=== PATIENT | female | born 1990 ===

== ENCOUNTER 2022-01-19 07:53 | Outpatient (REF) | payer MEDICARE, MEDICAID, SELFPAY ==
--- NOTE | ~2022-01-19 | XR_ITS ---
EXAMINATION: BILATERAL ANKLE X-RAY CLINICAL INFORMATION: Pain COMPARISON: None TECHNIQUE: 3 views of each ankle FINDINGS: Bone alignment is normal. No fracture or dislocation is seen. The ankle mortises are normal. The soft tissues are normal. XR/XR ankle LT min 3V IMPRESSION: Unremarkable exam.
--- NOTE | ~2022-01-19 | XR_ITS ---
EXAMINATION: BILATERAL ANKLE X-RAY CLINICAL INFORMATION: Pain COMPARISON: None TECHNIQUE: 3 views of each ankle FINDINGS: Bone alignment is normal. No fracture or dislocation is seen. The ankle mortises are normal. The soft tissues are normal. XR/XR ankle RT min 3V IMPRESSION: Unremarkable exam.
== END 2022-01-19 07:54 | disposition home or self-care (01) ==
LOC: HO.HOSX 07:53
PROVIDERS: Visit Provider Physician Assistant
DX: M25.571 Pain in right ankle and joints of right foot (principal); M25.572 Pain in left ankle and joints of left foot
CPT/HCPCS: 73610; 99202

== ENCOUNTER 2023-05-04 11:00 | Outpatient (REF) | payer MEDICARE, MEDICAID, SELFPAY ==
--- NOTE | ~2023-05-04 | XR_ITS ---
EXAMINATION: XR ANKLE, RIGHT CLINICAL INFORMATION: Pain COMPARISON: Ankle radiographs 01/11/1992 TECHNIQUE: AP, lateral, and mortise views of the right ankle. FINDINGS: No acute fracture or dislocation. 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 Punctate nonspecific calcification in the soft tissues posterior to the ankle. No joint effusion. XR/XR ankle RT min 3V IMPRESSION: 1. 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
== END 2023-05-04 11:01 | disposition home or self-care (01) ==
LOC: HO.HOSX 11:00
PROVIDERS: Visit Provider Physician Assistant
DX: M25.371 Other instability, right ankle (principal); M25.571 Pain in right ankle and joints of right foot
CPT/HCPCS: 73610; 99212

== ENCOUNTER 2023-05-04 13:10 | Outpatient (AMB) | payer MEDICARE, MEDICAID, SELFPAY ==
--- NOTE | 2023-05-04 13:18 | A.OFFVIS_ITS ---
Intake Intake Visit Reasons: Ov- Right ankle pain/ popping Intake Note: This is a 33 year old female who presents today for a follow up on her right ankle pain, DOI 04/12/21. She states still feeling sore and achiness. Hx of PT with mild relief, and the lace up ankle brace didn't help. Allergies No Known Allergies Allergy (Verified 05/04/23 13:31) HPI Ov- Right ankle pain/ popping HPI Details Melissa is a 33 year old woman who returns with complaints of right ankle pain, S/P fall, DOI: 04/12/21, with a new fall & re-injury on 01/14/22. She was last seen for bilateral ankle pain on 01/19/22. She was fitted for bilateral lace-up ankle braces and PT was ordered. She complains today of ongoing soreness & a persistent achiness in her right ankle. She also complains of a constant clicking or popping in her ankle with motion. She says this is mildly painful. She localizes her pain mostly to the lateral aspect of her ankle. She denies any pain with ankle motion. She found mild relief from PT in the past, and her ankle brace was not helpful. 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 [employer] Social History Current occupational status: unemployed Current occupation: right handed Review of Systems Const All systems reviewed & are unremarkable except as noted in HPI and below Physical Exam Const General: no acute distress, alert and awake Orientation/consciousness: patient oriented x3 HEENT Head: Yes normocephalic and Yes atraumatic Eyes EOM: EOMs intact bilaterally Resp Effort & Inspection: normal respiratory effort and able to speak in complete sentences Cardio Jugular venous distension: no JVD Skin General skin exam: turgor normal Rashes: no rashes Neuro General: patient oriented x3 Extrem Other: Right ankle: Normal to inspection. No ecchymosis, erythema, or edema. Full ROM in all planes, no TTP over the medial or lateral malleolus, over the ATFL, or deltoid. Negative anterior drawer. NVI. Psych Appearance: grossly normal Affect: normal affect Attitude: cooperative Results Reviewed Results Reviewed: X-rays of the right ankle which were obtained while in the office today and were reviewed by , Mary Simpson PA-C, were negative for any acute fractures or dislocations. Assessment & Plan Assessment & Plan (1) Instability of right ankle joint: Code(s): M25.371 - Other instability, right ankle (2) Right ankle pain: Code(s): M25.571 - Pain in right ankle and joints of right foot Plan Melissa is a 33 year old woman who returns with complaints of right ankle pain, S/P fall, DOI: 04/12/21, with a new fall & re-injury on 01/14/22. She was last seen for bilateral ankle pain on 01/19/22. She was fitted for bilateral lace-up ankle braces and PT was ordered. She complains today of ongoing soreness & a persistent achiness in her right ankle. She also complains of a constant clicking or popping in her ankle with motion. She says this is mildly painful, but she can feel this. She localizes her pain mostly to the lateral aspect of her ankle. She denies any pain with ankle motion. She found mild relief from PT in the past, and her ankle brace was not helpful. 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 The patient has tried and failed p.t. and bracing therefore, she will be sent for a right ankle MRI, as she would like to have this done at [facility]. She will follow up when completed for review. I explained that she will need to bring a copy of the imaging on disc, as well as a copy of the Radiologist report for this appointment, and she expressed understanding. Follow-up will be after MRI is obtained, sooner if needed. Orders: Orders XR ankle RT min 3V Today M25.579 - Pain in unspecified ankle and joints of unspecified foot MR ankle RT wo con Today M25.371 - Other instability, right ankle Patient Instructions: Scribed for Mary Simpson PA-C by David Collins, medical record retrieval specialist, on 05/04/23 at 1:35 PM EST. Coding Level of Care Code Est Pt Level 4 (72131) Diagnoses Instability of right ankle joint M25.371 Right ankle pain M25.571
== END 2023-05-04 13:57 | disposition home or self-care (01) ==
PROVIDERS: Visit Provider Physician Assistant
DX: M25.371 Other instability, right ankle (principal); M25.571 Pain in right ankle and joints of right foot
CPT/HCPCS: 99214

== ENCOUNTER 2023-06-18 12:49 | Outpatient (AMB) | payer MEDICARE, MEDICAID, SELFPAY ==
--- NOTE | 2023-06-18 12:52 | A.OFFVIS_ITS ---
Intake Vital Signs 06/18/23 12:54 Height 5 ft Weight 138 lb BMI 26.9 Intake Visit Reasons: OV - right ankle MRI review Intake Note: Melissa is a 33 year old female who presents today for a MRI review of her right ankle that was done at [place] on 05/07/23. Allergies No Known Allergies Allergy (Verified 06/18/23 12:56) HPI OV - right ankle MRI review HPI Details 33-year-old female who presents in the [facility] today for a follow up of right ankle pain. I last saw the patient in the office on 05/04/2023 where I ordered an MRI. [facility] Surgical History (Updated 06/18/23 @ 12:55 by KAYCEE Beauchamp) Hx of cholecystectomy Social History Current occupational status: unemployed Current occupation: right handed Review of Systems Const All systems reviewed & are unremarkable except as noted in HPI and below Physical Exam Vital Signs: BMI result Body Mass Index 26.9 Const General: cooperative, healthy appearing and no acute distress Resp Effort & Inspection: normal respiratory effort and able to speak in complete sentences Cardio Rate: regular rate Peripheral pulses: Peripheral pulses 2+ throughout GI Palpation (GI): Soft to palpation Skin Lesions: no lesions Rashes: no rashes Extrem Other: Right ankle: Normal to inspection. No ecchymosis, erythema, or edema. Patient is able to demonstrate dorsiflexion, plantar flexion, pronation and supination. Negative anterior drawer. Sensation intact. Pedal Pulse intact. Assessment & Plan Assessment & Plan (1) Instability of right ankle joint: Code(s): M25.371 - Other instability, right ankle (2) Right ankle pain: Code(s): M25.571 - Pain in right ankle and joints of right foot Plan Ms. Christianson is a 33-year-old female who presents in the office today for a follow up of right ankle pain. I last saw the patient in the office on 05/04/2023 where I ordered an MRI. A new referral was sent for the patient to work on ROM and strengthening of the right ankle. Follow up will be in 6-8 weeks by phone. If her symptoms continue we will discuss a referral to [facility] [place] foot and ankle specialist. Follow up will be in 6-8 weeks, or sooner if needed. MRI of the right ankle, obtained on 05/07/2023, revealed: Evidence of prior trauma to the anterior talofibular ligament with an otherwise unremarkable appearance of the ankle. Orders: Orders PT Evaluation and Treatment Today M25.371 - Other instability, right ankle, M25.571 - Pain in right ankle and joints of right foot Patient Instructions: Scribed for Mary Simpson PA-C by Erlinda Scott hospitalist medical director, on 06/18/2023 at 12:53 pm, EST. Coding Level of Care Code Est Pt Level 3 (14733) Diagnoses Instability of right ankle joint M25.371 Right ankle pain M25.571
[2023-06-18 12:54] VITALS: BMI 26.9
== END 2023-06-18 13:09 | disposition home or self-care (01) ==
PROVIDERS: Visit Provider Physician Assistant
DX: M25.371 Other instability, right ankle (principal); M25.571 Pain in right ankle and joints of right foot
CPT/HCPCS: 99213

== ENCOUNTER → 2023-06-18 12:49 | Outpatient (BNVA) | payer MEDICARE, MEDICAID, SELFPAY | PROVIDERS: Visit Provider Physician Assistant | DX: M25.571 Pain in right ankle and joints of right foot (principal); M25.371 Other instability, right ankle | CPT/HCPCS: 99212 ==